=== PATIENT | female | born 2000 | race African-American/Black ===

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

== ENCOUNTER 2022-03-17 08:27 | Emergency (ER) | payer OTHER ==
[~2022-03-17] VITALS: Ht 177.8 cm; Wt 91.0 kg
[2022-03-17] MEDS ORDERED: ACETAMINOPHEN 325MG TABLET PO STA (08:36)
[2022-03-17] MEDS ORDERED: DIPHENHYDRAMINE 50MG CAPSULE PO ONE (08:45)
[2022-03-17 09:22] LABS: BASOPHILS % 0.6 % (0.0-2.0); EOSINOPHILS % 0.3 % (0.0-5.0); HEMATOCRIT. 43.3 % (36.0-48.0); HEMOGLOBIN. 14.2 g/dL (12.0-16.0); LYMPHOCYTES % 27.5 % (20.0-50.0); MEAN CORPUSCULAR HEMOGLOBIN 29.3 pg (28.0-32.0); MEAN CORPUSCULAR VOLUME 89.5 fL (81.0-99.0); MEAN PLATELET VOLUME 7.3 fl (7.4-10.4); MONOCYTES % 3.4 % (2.0-8.0); NEUTROPHILS % 68.2 % (40.0-76.0); PLATELET 348 x1000/uL (130-400); RED BLOOD CELL COUNT 4.84 mill/uL (4.2-5.4); RED CELL DISTRIBUTION WIDTH 13.3 % (11.6-14.6)
[2022-03-17 09:29] LABS: CHLORIDE 106 mEq/L (98-107)
[2022-03-17 09:45] LABS: BG BASE EXCESS -0.4 mmol/L (-2.0-2.0); BG CARBOXYHEMOGLOBIN 1.3 % (0.5-1.5); BG DEOXYHEMOGLOBIN 3.2 % (0.0-5.0); BG FRACTION INSPIRED OXYGEN 21; BG HCO3 ACT 23.4 mmol/L (22.0-26.0); BG METHEMOGLOBIN 0.3 % (0.0-1.5); BG OXYGEN SATURATION 96.7 % (92.0-98.5); BG OXYHEMOGLOBIN 95.2 % (94.0-97.0); BG PCO2 36.3 mmHg (35.0-45.0); BG PH 7.428 (7.350-7.450); BG PO2 89.8 mmHg (75.0-100.0); BG SAMPLE SITE RIGHT BRACHIAL; BG TOTAL HEMOGLOBIN 14.6 g/dL (12.0-18.0); BG VENT MODE ROOM AIR
[2022-03-17 10:48] LABS: HCG SCREEN NEGATIVE
[2022-03-17 11:07] VITALS: BP 112/64
[2022-03-17] MEDS ORDERED: IOHEXOL-350 100 ML BOTTLE ONE (12:44)
== END 2022-03-17 13:38 | disposition home or self-care (01) ==
LOC: ER 08:27
DX: R07.2 Precordial pain (principal); R79.1 Abnormal coagulation profile; I49.1 Atrial premature depolarization; R94.31 Abnormal electrocardiogram [ECG] [EKG]; Z86.718 Personal history of other venous thrombosis and embolism; Z79.01 Long term (current) use of anticoagulants
CPT/HCPCS: 36415; 36600; 71045; 71275; 80053; 81025; 82375; 82805; 83880; 84484; 84703; 85025; 85379; 93005; 99285; Q0163; Q9967

== ENCOUNTER 2022-07-17 00:36 | Emergency (ER) | payer OTHER ==
[~2022-07-17] VITALS: Ht 177.8 cm; Wt 100.0 kg
[2022-07-17 00:45] VITALS: BP 144/88
[2022-07-17] MEDS ORDERED: ONDANSETRON HCL 4MG TABLET PO ONE (03:00)
== END 2022-07-17 02:30 | disposition left against medical advice (07) ==
LOC: ER 00:36
DX: Z53.21 Procedure and treatment not carried out due to patient leaving prior to being seen by health care provider (principal)